=== PATIENT | male | born 1935 | race Caucasian/White ===

== ENCOUNTER 2019-03-04 09:18 | Emergency (ER) | payer OTHER ==
[~2019-03-04] VITALS: Ht 172.7 cm; Wt 86.2 kg
[~2019-03-04 09:18] MED LIST: ALLOPURINOL 10100 M1; AMBEREN; CALCIPOTRIENE60 GM; CRESTOR20 MG; DELTA D3400 UNIT; ENBREL; FLUOCINONI0.05 %/30; FOLIC ACID1 MG; GLUCOPHAGE XR500 MG; HYDROXYZINE HCL25 M2; IBUPROFEN 600600 M1; LISINOPRIL10 MG; LORTAB 7.5/5001 TA3; OMEPRAZOLE20 MG; ROBAXIN 750 MG750 M1; SYNTHROID100 MCG; TIMOLOL GL0.5 %/5 ML; TRAMADOL 50 MG50 MG; TRAVATAN 0.004%5 ML
[2019-03-04] MEDS ORDERED: WELLBUTRIN 75 M75 M1 PO (09:33)
[2019-03-04 11:04] VITALS: BP 184/85
== END 2019-03-04 11:08 | disposition home or self-care (01) ==
LOC: M.ERS 09:18
DX: S01.81XA Laceration without foreign body of other part of head, initial encounter (principal); S13.9XXA Sprain of joints and ligaments of unspecified parts of neck, initial encounter; S60.412A Abrasion of right middle finger, initial encounter; S06.0X0A Concussion without loss of consciousness, initial encounter; E78.00 Pure hypercholesterolemia, unspecified; K21.9 Gastro-esophageal reflux disease without esophagitis; G89.29 Other chronic pain; M54.2 Cervicalgia; Z98.890 Other specified postprocedural states; V49.49XA Driver injured in collision with other motor vehicles in traffic accident, initial encounter; Y93.89 Activity, other specified; Y92.89 Other specified places as the place of occurrence of the external cause; Y99.8 Other external cause status